=== PATIENT | female | born 1965 | race Caucasian/White ===

== ENCOUNTER 2022-07-06 16:47 | Emergency (ER) | payer BC ==
--- OUTSIDE RECORDS SUMMARY | 2022-07-06 16:52 | XMS REPORT | Continuity of Care Document ---
:1965 Author Organization [facility] t Address [address] [place] [address] Care Team Providers Name Role Phone SONIA READ Primary Care Physician Unavailable Cullen Olea Attending Clinician Unavailable Sofía Carlos Attending Clinician Unavailable ANN SEGAL Attending Clinician Unavailable Sindhu Sue Attending Clinician Unavailable MANAV CHAVEZ Attending Clinician Unavailable SERENA PANDA Attending Clinician Unavailable SONIA READ Attending Clinician Unavailable Juanita Joseph Attending Clinician Unavailable GINO DIETZ Attending Clinician Unavailable Manav Chavez MD Attending Clinician Daisy, Delvis Urban Attending Clinician Unavailable Gema Schmitt MD Attending Clinician [phone] COLETTE HOWELL Attending Clinician Unavailable Judah Rooney DO Attending Clinician ANN SEGAL Admitting Clinician Unavailable Physician, No Primary or Family Admitting Clinician UnavailJuanita Drummond Admitting Clinician Unavailable GINO DIETZ Admitting Clinician Unavailable Sindhu Sue Admitting Clinician Unavailable MANAV CHAVEZ Admitting Clinician Unavailable Payers Payer Name Policy Type Policy Number Effective Date Expiration Date Nilam palacios BCBS OS [id number] 2020 00:00:00 POS/PPO/[place] - [id number] 2021 00:00:00 OUT OF STATE Problems Condition Condition Condition Status Onset Resolution Last Treating Co mments Source Name Details Category Date Date Treatment Clinician Date Microhemat Microhemat Disease Active 2020-12 U nivers uria uria 1-18 ity of 00:00: [place] 00 Medical Branch History of History of Disease Active 2020-12 U nivers right right 1-11 ity of breast breast 00:00: [place] cancer cancer Medical Branch Neuropathy Neuropathy Disease Active 2020-12 U nivers 0- ity of 00:00: [place] [facility] Atypical Atypical Disease Active [facility] hyper[facility]asi hyperplasi 2-03 Co llege a of right a of right 00:00: of breast breast 00 Medicin e Abnormal Abnormal Disease Active 2019-12 Unive rs thyroid thyroid 0-25 ity of function function 00:00: [place] test test 00 Medical Branch Need for Need for Disease Active 2019- Unive rs hepatitis hepatitis 1-02 ity of A and B A and B 00:00: [place] vaccinatio vaccinatio 00 Me dical n n Branch Benign Benign Disease Active 2020- Univers cyst of cyst of 1-02 ity of right right 00:00: [place] kidney kidney 00 Medical Branch Liver cyst Liver cyst Disease Active 2020- U nivers 1-02 ity of 00:00: [place] 00 Medical Branch Fatty Fatty Disease Active 2020- Univers liver liver 1-02 ity of 00:00: [place] 00 Medical Branch Prediabete Prediabete Disease Active 2018-12 U nivers s s 2- ity of 00:00: [place] 00 Medical Branch Hyperchole Hyperchole Disease Active 2018- U nivers sterolemia sterolemia 2-26 it y of 00:00: [place] 00 Medical Branch CKD CKD Disease Active 2018-12 Univers (chronic (chronic 2-26 ity of kidney kidney 00:00: [place] disease), disease), 00 Medi ramy stage III stage III Bran ch Chronic Chronic Disease Active 2018-12 Univers fatigue fatigue 2-26 ity of 00:00: [place] 00 Medical [facility] Abnormal Abnormal Disease Active 2018-12 Unive rs liver liver 2-19 ity of function function 00:00: [place] tests tests 00 Medical Branch Allergic Allergic Disease Active 2018-12 Unive rs rhinitis rhinitis 2-09 ity of 00:00: [place] 00 Medical Branch Essential Essential Disease Active 2018-12 Uni vers hypertensi hypertensi 2-09 it y of on on 00:00: [place] 00 Medical Branch Arthritis Arthritis Disease Active 2018-12 Uni vers 2-09 ity of 00:00: [place] 00 Medical Branch Hearing Hearing Disease Active 2018-12 Univers loss loss 2- ity of 00:00: [place] 00 Medical Branch History of History of Disease Active 2018-12 U nivers headache headache 2- ity of 00:00: [place] 00 Medical Branch GERD GERD Disease Active 2018-12 Univers (gastroeso (gastroeso 2- it y of phageal phageal 00:00: [place] reflux reflux 00 Medical disease) disease) Branch Hyperlipid Hyperlipi Problem Active 2021-08-05 Memoria emia demia 01:30:02 l (disorder) (disorder) He rmann Active Problem 08/05/2021 [facility] Hypertensi Problem Active 2021-08-05 M emoria ve Hypertensi 01:30:02 l disorder, ve [place] systemic disorder, arterial systemic (disorder) arterial (disorder) Active Problem 08/05/2021 [facility] Paresthesi Paresthes Problem Active 2021-08-05 Memoria a of hand ia of hand 01:30:02 l (finding) (finding) Herm pelon Active Problem 08/05/2021 [facility] Malignant Malignant Problem Resolve 2021-08-05 Memoria tumor of tumor of d 01:30:02 l breast breast Francisco (disorder) (disorder) Resolved Problem 08/05/2021 [facility] Backache Backache Problem Active 2021-08-05 Memoria (finding) (finding) 01:30:02 l Active [place] Problem 08/05/2021 [facility] Family Family Problem Active 2021-08-05 Barrett de history of history of 01:30:02 l neuropathy neuropathy He rmann (situation (situation ) ) Active Problem 08/05/2021 [facility] Hip pain Hip pain Problem Active 2021-08-05 Memoria (finding) (finding) 01:30:02 l Active [place] Problem 08/05/2021 [facility] Allergies, Adverse Reactions, Alerts Allergy Allergy Status Severity Reaction(s) Onset Inactive Treating Comm ents Source Name Type Date Date Clinician No Known DA Active U [facility] 3-10 [place] [facility] No Known DA Active U [facility] Drug 2-15 Allergie 00:00: s 00 CEFOTAXI Allergy Active [facility] Medical [address] [place] [address] Cefotaxi Propensi Active Hives 2018-12 [facility] me ty to 01-10 College adverse 00:00: of reaction 00 Medicin s to e drug Cefotaxi Propensi Active Hives 2018-12 Univer s me ty to 01-10 ity of adverse 00:00: [place] reaction 00 Medical s Branch CEFOTAXI DRUG Active High Hives 2018-12 Univers ME INGREDI 01-10 ity of 00:00: [place] 00 [facility] Omar Nelson Active Gwen Singh Social History Social Habit Start Date Stop Date Quantity Comments Source Exposure to Not sure [place] of SARS-CoV-2 (event) [facility] Alcohol intake 2021-10-19 2021-10-19 Ex-drinker University of 00:00:00 00:00:00 (finding) [facility] Social History 2021-08-02 2021-08-02 [place] 18:59:21 18:59:21 Cigarettes smoked 2021-01-04 2021-01-04 [facility] of current (pack per 00:00:00 00:00:00 Medicin e day) - Reported Cigarette 2021-01-04 2021-01-04 [facility] of pack-years 00:00:00 00:00:00 Medicine Tobacco use and 2019-11-09 2019-11-09 Never used Universit y of exposure 00:00:00 00:00:00 [facility] History of tobacco 2002-12-02 2007-12-02 Cigarette Smoker [facility] of use 00:00:00 00:00:00 Medicine Sex [birth year] Universit y of 00:00:00 00:00:00 [facility] Smoking Status Start Date Stop Date Source Former smoker 2021-01-04 00:00:00 2021-01-04 00:00:00 [facility] Never smoker [facility] Medications Ordered Filled Start Stop Current Ordering Indication Dosage Frequency Signature Comments Components Source Medication Medication Date Date Medication? Clinician (SIG) Name Name gabapentin 2020-12 Yes 300mg Take 300 Un melodie 300 mg 1-11 mg by ity of capsule 13:27: mouth [address] [place] [address] ([facility]) [facility] times [place] daily. She reports only taking the medication twice a day tamoxifen 2020-12 Yes 20mg Take 20 mg Un melodie 20 mg 1-11 by mouth ity of tablet 13:27: daily. [address] gabapentin 2020-12 Yes 300mg Take 300 Un melodie 300 mg 1-11 mg by ity of capsule 13:27: mouth [address] [place] [address] ([facility] times [place] daily. She reports only taking the medication twice a day tamoxifen 2020-12 Yes 20mg Take 20 mg Un melodie 20 mg 1-11 by mouth ity of tablet 13:27: daily. [address] gabapentin 2020-12 Yes 300mg Take 300 Un melodie 300 mg 1-11 mg by ity of capsule 13:27: mouth [address] [place] [address] ([facility] times [place] daily. She reports only taking the medication twice a day tamoxifen 2020-12 Yes 20mg Take 20 mg Un melodie 20 mg 1-11 by mouth ity of tablet 13:27: daily. [address] gabapentin 2020-12 Yes 300mg Take 300 Un melodie 300 mg 1-11 mg by ity of capsule 13:27: mouth [address] [place] [address] ([facility]) [facility] times [place] daily. She reports only taking the medication twice a day tamoxifen 2020-12 Yes 20mg Take 20 mg Un melodie 20 mg 1-11 by mouth ity of tablet 13:27: daily. [address] gabapentin 2020-12 Yes 300mg Take 300 Un melodie 300 mg 1-11 mg by ity of capsule 13:27: mouth [address] [place] [address] ([facility]) [facility] times [place] daily. She reports only taking the medication twice a day tamoxifen 2020-12 Yes 20mg Take 20 mg Un melodie 20 mg 1-11 by mouth ity of tablet 13:27: daily. 04 Medical Branch Amlodipine- 2020-12 Yes [id number] 1{tbl} Take 1 Univers Olmesartan 1-11 tablet by ity of 5-20 mg per 00:00: mouth [place] tablet 00 daily. Medical Branch rosuvastati 2020-12 Yes [id number] 10mg Take 1 Univers n 10 mg 1-11 tablet by ity of tablet 00:00: mouth at [place] 00 bedtime. Medical Branch Amlodipine- 2020-12 Yes [id number] 1{tbl} Take 1 Univers Olmesartan 1-11 tablet by ity of 5-20 mg per 00:00: mouth [place] tablet 00 daily. Medical Branch rosuvastati 2020-12 Yes [id number] 10mg Take 1 Univers n 10 mg 1-11 tablet by ity of tablet 00:00: mouth at [place] 00 bedtime. Medical Branch Amlodipine- 2020-12 Yes [id number] 1{tbl} Take 1 Univers Olmesartan 1-11 tablet by ity of 5-20 mg per 00:00: mouth [place] tablet 00 daily. Medical Branch rosuvastati 2020-12 Yes [id number] 10mg Take 1 Univers n 10 mg 1-11 tablet by ity of tablet 00:00: mouth at [place] 00 bedtime. Medical Branch Amlodipine- 2020-12 Yes [id number] 1{tbl} Take 1 Univers Olmesartan 1-11 tablet by ity of 5-20 mg per 00:00: mouth [place] tablet 00 daily. Medical Branch rosuvastati 2020-12 Yes [id number] 10mg Take 1 Univers n 10 mg 1-11 tablet by ity of tablet 00:00: mouth at [place] 00 bedtime. Medical Branch Amlodipine- 2020-12 Yes [id number] 1{tbl} Take 1 Univers Olmesartan 1-11 tablet by ity of 5-20 mg per 00:00: mouth [place] tablet 00 daily. Medical Branch rosuvastati 2020-12 Yes [id number] 10mg Take 1 Univers n 10 mg 1-11 tablet by ity of tablet 00:00: mouth at [place] 00 bedtime. Medical Branch Amlodipine- 2020-12 [id number] 1{tbl} Take 1 Univers Olmesartan 1-10 11-11 tablet by ity of 5-20 mg per 00:00: 00:00 [place] tablet [place] :00 daily. [facility] omeprazole 0 Yes Take by [facility] (PRILOSEC) 9- mouth. College 40 MG 08:53: of capsule 17 Medicin e omeprazole 0 Yes Take by [facility] (PRILOSEC) - mouth. College 40 MG 08:53: of capsule 17 Medicin e tamoxifen Yes 10mg Take 1 [facility] (NOLVADEX) - Tablet by Janet ege 10 MG 00:00: mouth of tablet 00 daily. Medicin e tamoxifen 0 Yes 10mg Take 1 [facility] (NOLVADEX) - Tablet by Janet ege 10 MG 00:00: mouth of tablet 00 daily. Medicin e gabapentin Yes 300 mg = 1 M emoria 300 MG Oral 08-02 cap, PO, l Capsule 19:58: TID, # 90 Radha nn 00 cap, 2 Refill(s), Pharmacy: [id number], 154.94, cm, 08/02/21 14:10:00 CDT, Height, 76.364, kg, 08/02/21 14:10:00 CDT, Weight gabapentin Yes 300 mg = 1 M emoria 300 MG Oral 08-02 cap, PO, l Capsule 19:58: TID, # 90 Radha nn 00 cap, 2 Refill(s), [facility]: [id number], 154.94, cm, 08/02/21 14:10:00 CDT, Height, 76.364, kg, 08/02/21 14:10:00 CDT, Weight Amlodipine Yes 1 tab, PO, M emoria 5 MG / 08-02 Daily, # l Olmesartan 19:16: 30 tab, 0 He rmann medoxomil 00 Refill(s) 20 MG Oral Tablet rosuvastati Yes 10 mg = 1 M emoria n 10 mg 08-02 tab, PO, l oral tablet 19:16: Bedtime, # [place] 00 30 tab, 0 Refill(s) gabapentin No 200 mg = 2 M emoria 100 MG Oral 08-02 cap, PO, l Capsule 19:16: Q6H, # 240 Herm pelon 00 cap, 0 Refill(s) Amlodipine Yes 1 tab, PO, M emoria 5 MG / 08-02 Daily, # l Olmesartan 19:16: 30 tab, 0 He rmann medoxomil 00 Refill(s) 20 MG Oral Tablet rosuvastati Yes 10 mg = 1 M emoria n 10 mg 08-02 tab, PO, l oral tablet 19:16: Bedtime, # [place] 00 30 tab, 0 Refill(s) gabapentin No 200 mg = 2 M emoria 100 MG Oral 08-02 cap, PO, l Capsule 19:16: Q6H, # 240 Herm pelon 00 cap, 0 Refill(s) taMOXifen Yes 20 mg = 1 Mem oria 20 mg oral 08-02 tab, PO, l tablet 19:15: Daily, # [place] 00 30 tab, 0 Refill(s) omeprazole Yes 40 mg = 1 Me moria 40 mg oral 08-02 cap, PO, l delayed 19:15: Daily, # Benigno n release 00 30 cap, 0 capsule Refill(s) taMOXifen Yes 20 mg = 1 Mem oria 20 mg oral 08-02 tab, PO, l tablet 19:15: Daily, # [place] 00 30 tab, 0 Refill(s) omeprazole Yes 40 mg = 1 Me moria 40 mg oral 08-02 cap, PO, l delayed 19:15: Daily, # Benigno n release 00 30 cap, 0 capsule Refill(s) gabapentin Yes [id number] 100mg Take 1 [facility] (NEURONTIN) 8-04 capsule by Co llege 100 MG 00:00: mouth 3 of capsule 00 times Medicin daily. e gabapentin Yes [id number] 100mg Take 1 [facility] (NEURONTIN) 8-04 capsule by Co llege 100 MG 00:00: mouth 3 of capsule 00 times Medicin daily. e omeprazole Yes Take by [facility] (PRILOSEC) 7-20 mouth. College 40 MG 15:12: of capsule 46 Medicin e tamoxifen 2021-0 Yes 20mg Take 1 [facility] (NOLVADEX) 4-20 Tablet by Janet ege 20 MG 00:00: mouth of tablet 00 daily. Medicin e tamoxifen 0 Yes 20mg Take 1 [facility] (NOLVADEX) 4-20 Tablet by Janet ege 20 MG 00:00: mouth of tablet 00 daily. Medicin e tamoxifen 0 Yes 20mg Take 1 [facility] (NOLVADEX) 4-20 Tablet by Janet ege 20 MG 00:00: mouth of tablet 00 daily. Medicin e tramadol 0 2020- No [id number] 1{tbl} Take 1 [facility] (ULTRAM) 50 4-13 07-20 Tablet by Co llege MG tablet 00:00: 00:00 mouth of 00 :00 every 8 Medicin hours as e needed for Pain. rosuvastati Yes TAKE 1 [facility] (CRESTOR) 1-21 TABLET BY Col lege 10 MG 00:00: MOUTH of tablet 00 EVERYDAY Medicin AT BEDTIME e rosuvastati Yes TAKE 1 [facility] (CRESTOR) 1-21 TABLET BY Col lege 10 MG 00:00: MOUTH of tablet 00 EVERYDAY Medicin AT BEDTIME e rosuvastati Yes TAKE 1 [facility] (CRESTOR) 1-21 TABLET BY Col lege 10 MG 00:00: MOUTH of tablet 00 EVERYDAY Medicin AT BEDTIME e amLODIPine- Yes TAKE 1 [facility] Olmesartan 1-18 TABLET BY Janet ege 5-20 MG 00:00: MOUTH of TABS 00 EVERY DAY Medicin e amLODIPine- Yes TAKE 1 [facility] Olmesartan 1-18 TABLET BY Janet ege 5-20 MG 00:00: MOUTH of TABS 00 EVERY DAY Medicin e amLODIPine- Yes TAKE 1 [facility] Olmesartan 1-18 TABLET BY Janet ege 5-20 MG 00:00: MOUTH of TABS 00 EVERY DAY Medicin e OMEPRAZOLE 2019-12 Yes Take by [facility] ers ORAL 2-03 mouth. ity of 15:56: [address] OMEPRAZOLE 2019-12 Yes Take by [facility] ers ORAL 2-03 mouth. ity of 15:56: [address] OMEPRAZOLE 2019-12 Yes Take by [facility] ers ORAL 2-03 mouth. ity of 15:56: [place] [facility] OMEPRAZOLE 2019-12 Yes Take by [facility] ers ORAL 2-03 mouth. ity of 15:56: [place] [facility] OMEPRAZOLE 2019-12 Yes Take by [facility] ers ORAL 2-03 mouth. ity of 15:56: [address] rosuvastati 2019-12- No [id number] 10mg Take 1 Univers n 10 mg 0-16 11-11 tablet by ity of tablet 00:00: 00:00 mouth at [place] 00 :00 bedtime. [facility] Immunizations Ordered Filled Immunization Date Status Comments [facility] e Immunization Name Name SARS-COV-2 COVID-19 2021-10-12 Completed Unive rsity of PFIZER VACCINE 00:00:00 [facility] SARS-COV-2 COVID-19 2021-10-12 Completed Unive rsity of PFIZER VACCINE 00:00:00 [facility] SARS-COV-2 COVID-19 2021-10-12 Completed Unive rsity of PFIZER VACCINE 00:00:00 [facility] SARS-COV-2 COVID-19 2021-10-12 Completed Unive rsity of PFIZER VACCINE 00:00:00 [facility] SARS-COV-2 COVID-19 2021-10-12 Completed Unive rsity of PFIZER VACCINE 00:00:00 [facility] Influenza Virus 2021-08-07 Completed Universit y of Vaccine Quad IM 3+ 00:00:00 [facility] Influenza Virus 2021-08-07 Completed Universit y of Vaccine Quad IM 3+ 00:00:00 [facility] Influenza Virus 2021-08-07 Completed Universit y of Vaccine Quad IM 3+ 00:00:00 [facility] Influenza Virus 2021-08-07 Completed Universit y of Vaccine Quad IM 3+ 00:00:00 [facility] Influenza Virus 2021-08-07 Completed Universit y of Vaccine Quad IM 3+ 00:00:00 [facility] SARS-COV-2 COVID-19 2021-03-13 Completed Unive rsity of PFIZER VACCINE 00:00:00 [facility] SARS-COV-2 COVID-19 2021-03-13 Completed Unive rsity of PFIZER VACCINE 00:00:00 [facility] SARS-COV-2 COVID-19 2021-03-13 Completed Unive rsity of PFIZER VACCINE 00:00:00 [facility] SARS-COV-2 COVID-19 2021-03-13 Completed Unive rsity of PFIZER VACCINE 00:00:00 [facility] SARS-COV-2 COVID-19 2021-03-13 Completed Unive rsity of PFIZER VACCINE 00:00:00 [facility] SARS-COV-2 COVID-19 2021-02-20 Completed Unive rsity of PFIZER VACCINE 00:00:00 [facility] SARS-COV-2 COVID-19 2021-02-20 Completed Unive rsity of PFIZER VACCINE 00:00:00 [facility] SARS-COV-2 COVID-19 2021-02-20 Completed Unive rsity of PFIZER VACCINE 00:00:00 [facility] SARS-COV-2 COVID-19 2021-02-20 Completed Unive rsity of PFIZER VACCINE 00:00:00 [facility] SARS-COV-2 COVID-19 2021-02-20 Completed Unive rsity of PFIZER VACCINE 00:00:00 [facility] Influenza Virus 2020-07-13 Completed Universit y of Vaccine Quad .5 mL 00:00:00 [facility] IM 6+ MO Branch Influenza Virus 2020-07-13 Completed Universit y of Vaccine Quad .5 mL 00:00:00 [facility] IM 6+ MO Branch Influenza Virus 2020-07-13 Completed Universit y of Vaccine Quad .5 mL 00:00:00 [facility] IM 6+ MO Branch Influenza Virus 2020-07-13 Completed Universit y of Vaccine Quad .5 mL 00:00:00 [facility] IM 6+ MO Branch Influenza Virus 2020-07-13 Completed Universit y of Vaccine Quad .5 mL 00:00:00 [facility] [place] 6+ MO Branch Zoster Vaccine 2020-01-31 Completed University of Recombinant 00:00:00 [facility] Zoster Vaccine 2020-01-31 Completed University of Recombinant 00:00:00 [facility] Zoster Vaccine 2020-01-31 Completed University of Recombinant 00:00:00 [facility] Zoster Vaccine 2020-01-31 Completed University of Recombinant 00:00:00 [facility] Zoster Vaccine 2020-01-31 Completed University of Recombinant 00:00:00 [facility] Zoster Vaccine 2019-12-02 Completed University of Recombinant 00:00:00 [facility] Zoster Vaccine 2019-12-02 Completed University of Recombinant 00:00:00 [facility] Zoster Vaccine 2019-12-02 Completed University of Recombinant 00:00:00 [facility] Zoster Vaccine 2019-12-02 Completed University of Recombinant 00:00:00 [facility] Zoster Vaccine 2019-12-02 Completed University of Recombinant 00:00:00 [facility] TDAP 2018-11-29 Completed University of 00:00:00 [facility] TDAP 2018-11-29 Completed University of 00:00:00 [facility] TDAP 2018-11-29 Completed University of 00:00:00 [facility] TDAP 2018-11-29 Completed University of 00:00:00 [facility] TDAP 2018-11-29 Completed University of 00:00:00 [facility] Vital Signs Vital Name Observation Time Observation Value Comments Source HEIGHT 2021-03-08 06:43:00 157.5 cm WEIGHT 2021-03-08 06:43:00 76.3 kg HEIGHT 2021-03-06 12:47:00 157.5 cm WEIGHT 2021-03-06 12:47:00 75.297 kg HEIGHT 2021-02-07 06:18:00 157.5 cm WEIGHT 2021-02-07 06:18:00 75.524 kg HEIGHT 2021-02-01 09:36:00 157.5 cm WEIGHT 2021-02-01 09:36:00 77.111 kg Systolic blood 2021-10-12 19:06:00 98 mm[Hg] Univer sity of pressure [facility] Diastolic blood 2021-10-12 19:06:00 67 mm[Hg] Unive rsity of pressure [facility] Heart rate 2021-10-12 19:06:00 89 /min Universi ty [facility] [place] [facility] Body height 2021-10-12 19:06:00 157.5 cm Universi ty [facility] [place] [facility] Body weight 2021-10-12 19:06:00 70.761 kg Universi ty [facility] [place] [facility] BMI 2021-10-12 19:06:00 28.53 kg/m2 Universi ty [facility] [place] [facility] Oxygen saturation in 2021-10-12 19:06:00 100 /min University Arterial blood by [facility] Pulse oximetry Branch Systolic blood 2021-08-22 14:01:00 114 mm[Hg] [facility] Medicine Diastolic blood 2021-08-22 14:01:00 74 mm[Hg] [facility] Medicine Heart rate 2021-08-22 14:01:00 89 /min [facility] Body height 2021-08-22 14:01:00 [facility] Body weight 2021-08-22 14:01:00 72.576 kg [facility] BMI 2021-08-22 14:01:00 29.26 kg/m2 [facility] Body temperature 2021-08-22 13:52:00 36.11 [facility] Systolic blood 2021-06-20 19:56:00 104 mm[Hg] [facility] Diastolic blood 2021-06-20 19:56:00 70 mm[Hg] [facility] Heart rate 2021-06-20 19:56:00 106 /min [facility] Body temperature 2021-06-20 19:56:00 36.11 [facility] Body height 2021-06-20 19:56:00 157.5 cm [facility] Body weight 2021-06-20 19:56:00 74.39 kg [facility] BMI 2021-06-20 19:56:00 30.00 kg[facility]m2 [facility] HEIGHT 2021-03-08 06:43:00 157.5 cm WEIGHT 2021-03-08 06:43:00 76.3 kg HEIGHT 2021-03-06 12:47:00 157.5 cm WEIGHT 2021-03-06 12:47:00 75.297 kg HEIGHT 2021-02-07 06:18:00 157.5 cm WEIGHT 2021-02-07 06:18:00 75.524 kg HEIGHT 2021-02-01 09:36:00 157.5 cm WEIGHT 2021-02-01 09:36:00 77.111 kg HEIGHT 2021-02-06 08:10:00 157.5 cm WEIGHT 2021-02-06 08:10:00 75.751 kg Systolic (mm Hg) 2021-08-02 18:51:00 Barrett Singh Diastolic (mm Hg) 2021-08-02 18:51:00 Radha Singh Heart Rate 2021-08-02 18:51:00 [facility] Respitory Rate 2021-08-02 18:51:00 Gwen Stafford Height 2021-08-02 18:51:00 154.94 cm [facility] Weight 2021-08-02 18:51:00 [facility] BMI Calculated 2021-08-02 18:51:00 [facility] gerald Singh Procedures Procedure Date / Time Performing Clinician Source Performed US RETROPERITONEAL 2021-11-09 19:35:40 Manav Chavez [facility] COMPLETE Medical Branch SARS-COV-2 COVID-19 2021-10-12 19:35:45 Manav Chavez [facility] VACCINE,0.3ML,IM (PFIZER) Medica l Branch HEPATIC FUNCTION PANEL 2021-08-22 13:50:00 Meaghan Melo [facility] Lumpectomy [facility] Carpal tunnel release [facility] Plan of Care Planned Activity Planned Date Details Comments Source Future Scheduled 2021-08-25 Screening for malignant [facility] College Test 10:13:36 neoplasm of colon of Medicin e (procedure) [code = [id number]] Future Scheduled 2021-08-25 Screening for malignant [facility] College Test 10:13:36 neoplasm of breast of Medici ne (procedure) [code = [id number]] Future Scheduled 2021-08-25 BMI FOLLOW UP PLAN [facility] Test 10:13:36 [code = BMI FOLLOW UP of Med icine PLAN] Future Scheduled 2021-08-25 Hepatitis C screening [facility] College Test 10:13:36 (procedure) [code = of Medic ine [id number]] Future Scheduled 2021-08-25 Human immunodeficiency [facility] Test 10:13:36 virus screening of Medicine (procedure) [code = 004890838] Future Scheduled 2021-08-25 Screening for malignant [facility] Test 10:13:36 neoplasm of cervix of Medici ne (procedure) [code = 961073952] Future Scheduled 2021-08-25 ZOSTER VACCINE (1 of 2) [facility] [employer] Test 10:13:36 [code = ZOSTER VACCINE of Me dicine (1 of 2)] Future Scheduled 2021-08-25 FLU VACCINE > 6 MONTHS [facility] Test 10:13:36 [code = FLU VACCINE > 6 of M edicine MONTHS] Future Scheduled 2021-08-25 TETANUS SHOT (ADULT) [facility] [employer] Test 10:13:36 [code = TETANUS SHOT of Medi cine (ADULT)] Future Scheduled 2021-08-25 Screening for malignant [facility] Test 10:13:36 neoplasm of colon of Medicin e (procedure) [code = 874080657] Future Scheduled 2021-08-25 Screening for malignant [facility] Test 10:13:36 neoplasm of breast of Medici ne (procedure) [code = 838442949] Future Scheduled 2021-08-25 BMI FOLLOW UP PLAN [employer] Test 10:13:36 [code = BMI FOLLOW UP of Med icine PLAN] Future Scheduled 2021-08-25 Hepatitis C screening [facility] Test 10:13:36 (procedure) [code = of Medic ine 393947192] Future Scheduled 2021-08-25 Human immunodeficiency B [facility] Test 10:13:36 virus screening of Medicine (procedure) [code = 086636919] Future Scheduled 2021-08-25 Screening for malignant [facility] Test 10:13:36 neoplasm of cervix of Medici ne (procedure) [code = 124149480] Future Scheduled 2021-08-25 ZOSTER VACCINE (1 of 2) [facility] Test 10:13:36 [code = ZOSTER VACCINE of Me dicine (1 of 2)] Future Scheduled 2021-08-25 FLU VACCINE > 6 MONTHS [facility] Test 10:13:36 [code = FLU VACCINE > 6 of M edicine MONTHS] Future Scheduled 2021-08-25 TETANUS SHOT (ADULT) [facility] [employer] Test 10:13:36 [code = TETANUS SHOT of Medi cine (ADULT)] Future Scheduled 2021-08-22 DEXA BONE DENSITY SPINE 1 Occurrences [facility] [employer] Test 09:45:12 AND HIP [code = 01756] starting of Me dicine 08/22/2021 until 08/22/2022 Future Scheduled 2021-08-22 DEXA BONE DENSITY SPINE 1 Occurrences [facility] [employer] Test 09:45:12 AND HIP [code = 92545] starting of Me dicine 08/22/2021 until 08/22/2022 Diagnostic Test 2021-08-22 MAMMO DIAGNOSTIC BILAT Expected: [employer] Pending 00:00:00 (US/BIOP IF NEEDED) 08/22/2021, of Medic ine [code = 01848-9] Expires: 02/19/2023 Diagnostic Test 2021-08-22 MAMMO DIAGNOSTIC BILAT Expected: [employer] Pending 00:00:00 (US/BIOP IF NEEDED) 08/22/2021, of Medic ine [code = 28433-7] Expires: 02/19/2023 Future Scheduled 2021-06-23 Screening for malignant [facility] Test 18:25:25 neoplasm of colon of Medicin e (procedure) [code = 074486801] Future Scheduled 2021-06-23 Screening for malignant [facility] Test 18:25:25 neoplasm of breast of Medici ne (procedure) [code = 345641046] Future Scheduled 2021-06-23 BMI FOLLOW UP PLAN [facility] Test 18:25:25 [code = BMI FOLLOW UP of Med icine PLAN] Future Scheduled 2021-06-23 Hepatitis C screening [facility] Test 18:25:25 (procedure) [code = of Medic ine 758094476] Future Scheduled 2021-06-23 Human immunodeficiency [facility] Test 18:25:25 virus screening of Medicine (procedure) [code = 762396857] Future Scheduled 2021-06-23 Screening for malignant [facility] Test 18:25:25 neoplasm of cervix of Medici ne (procedure) [code = 708000839] Future Scheduled 2021-06-23 ZOSTER VACCINE (1 of 2) [facility] [employer] Test 18:25:25 [code = ZOSTER VACCINE of Me dicine (1 of 2)] Future Scheduled 2021-06-23 FLU VACCINE > 6 MONTHS [facility] [employer] Test 18:25:25 [code = FLU VACCINE > 6 of M edicine MONTHS] Future Scheduled 2021-06-23 TETANUS SHOT (ADULT) [facility] Test 18:25:25 [code = TETANUS SHOT of Medi cine (ADULT)] Encounters Start End Encounter Admission Attending Care Care Encounter Source Date/Time Date/Time Type Type Clinicians Facility Department ID 2022-07-05 Outpatient [facility] [id number] Common 15:05:01 [facility] 2022-06-27 Outpatient STLMLC STLMLC [id number] Common 11:28:03 [facility] 2022-06-14 Outpatient Olea, STLMLC STLMLC [id number] Common 15:03:03 Cullen [id number] [facility] 2022-03-20 Outpatient STLMLC STLMLC [id number] Common 07:23:00 [facility] 2022-01-16 Inpatient Sofía Carlos [facility] [id number] [facility] 15:00:00 13 2021-12-27 Outpatient STLMLC STLMLC [id number] Common 14:30:52 [facility] 2021-12-27 Outpatient STLMLC STLMLC [id number] Common 14:28:12 [id number] [facility] 2021-09-09 Outpatient BONEFAS, [facility] [id number] [facility] 09:33:36 ANN 2021-09-09 Outpatient BONEFAS, [facility] Surgery [id number] [facility] 02:51:09 ANN 2020-12-20 Inpatient LIZA Sue, [facility] [id number] [facility] 10:12:00 [facility]hu [id number] [facility] 2022-10-08 2022-10-08 Outpatient Laura CHAVEZ [facility] [id number] Univers 08:45:00 08:45:00 MANAV [id number] ity o f [facility] 2022-07-16 2022-07-16 Outpatient Laura PANDA [facility] [id number] Univers 11:00:00 11:00:00 SERENA [id number] [facility] 2022-07-06 2022-07-06 Outpatient Laura READ [facility] [id number] Univers 15:30:00 15:30:00 SONIA [id number] [facility] 2022-07-06 2022-07-06 Outpatient Laura READ [facility] [id number] Univers 15:30:00 15:30:00 SONIA ity of [facility] 2022-02-08 2022-02-08 Outpatient LI[facility] Joseph[facility] [id number] [facility] 14:01:00 14:01:00 Juanita [id number] [facility] 2022-02-08 2022-02-08 Outpatient LIZA Joseph, HCAPM HCAPM [id number] [facility] 14:01:00 14:01:00 Juanita 65 [facility] 2021-12-13 2021-12-13 Outpatient LI[facility] DIETZ, [facility] IN[facility] [id number] [facility] 12:00:00 12:00:00 GINO [id number] [facility] 2021-11-09 2021-11-09 [facility] [id number] Univers 13:03:46 23:59:00 Encounter Wondiful A [place] 350.1.13.10 ity of [facility] 4.2.7.2.686 [facility] [id number] [address] 2021-11-09 2021-11-09 [facility] [id number] Univers 13:30:00 13:30:00 WONDIFUL [id number] ity o f [facility] 2021-11-09 2021-11-09 [facility] [id number] Univers 13:00:00 13:02:00 Encounter Wondiful A [place] 350.1.13.10 ity [facility] 4.2.7.2.686 [facility] [id number] [address] 2021-11-09 2021-11-09 [facility]patient R [facility] [id number] Univers 00:00:00 13:02:00 WONDIFUL ity o f [facility] 2021-10-19 2021-10-19 Case [facility] [id number] Univers 00:00:00 00:00:00 Management Wondiful A HEALTH 350.1.13.10 ity of [place] 4.2.7.2.686 Leonidsa as SALUD?BLEA [id number] Al poonam [facility] 044 [facility] OFFICE [facility] 2021-10-17 2021-10-17 [employer] [facility], Ang - Db [facility] 1.2.840.1 [id number] Univers 07:30:11 07:45:11 Visit Manav Chavez HEALTH 350.1.13.1 0 ity of [place] 4.2.7.2.686 Leonidas as SALUD?BLEA [id number] Al poonam [facility] 353 [facility] OFFICE [facility] 2021-10-17 2021-10-17 Outpatient R SCOTT [facility] [id number] Univers 07:30:00 07:30:00 WONDIFUL ity o f [facility] 2021-10-12 2021-10-12 Office Scott [facility] [id number] [facility] 13:04:47 13:50:56 Visit Wonharleyful A HEALTH 350.1.13.10 ity of [place] 4.2.7.2.686 Leonidas as SALUD?BLEA [id number] Al poonam [address] OFFICE [facility] 2021-09-07 2021-09-07 Outpatient MHIE MHIE [id number] Memoria 08:15:00 08:15:00 01 l Francisco 2021-08-22 2021-08-22 Office Nemati [facility] [id number] [facility] 08:28:41 12:15:06 Visit Lilli Melo 350.1.13.21 C prashant Ribeiro 0.2.7.2.686 [id number] Medi casey 500 e 2021-08-22 2021-08-22 Outpatient RIDEAU, SLEH [facility] [id number] [facility] 00:00:00 00:00:00 COLETTE 2021-08-02 2021-08-03 Outpatient nullFlavo MNA [id number] Memoria 18:45:00 04:59:59 r Neurology 00 l Tati Singh 2021-06-20 2021-06-20 Office Nemati [facility] 1.2.840.114 [id number] [facility] 14:35:44 15:26:08 Visit Lilli Melo 350.1.13.21 C prashant Ribeiro 0.2.7.2.686 [id number] Medi casey 500 e 2021-03-06 2021-03-06 Outpatient EL SLEH SLEH [id number] [facility] 00:00:00 00:00:00 2021-02-14 2021-02-14 [facility] 1.2.840.114 [id number] 00:00:00 00:00:00 Outreach [facility] 350..13.[address] [facility] 4.2.7.2.686 PAVDOT [id number] 2021-02-06 2021-02-06 Outpatient EL MARILEE, SLE [facility] [id number] [facility] 00:00:00 23:59:00 ANN 2021-02-06 2021-02-06 Outpatient EL [facility] [id number] [facility] 00:00:00 00:00:00 2021-02-06 2021-02-06 Outpatient EL [facility] SLEH [id number] [facility] 00:00:00 00:00:00 2021-02-06 2021-02-06 Outpatient EL SLEH SLEH [id number] [facility] 00:00:00 00:00:00 2021-02-01 2021-02-01 Outpatient EL [facility] [id number] [facility] 00:00:00 00:00:00 2020-12-15 2020-12-15 Outpatient LIZA Sue, [facility] [id number] [facility] 12:00:00 12:00:00 Sindhu Bateman [facility] 2020-12-09 2020-12-09 Outpatient LIZA Sue, [facility] INGE [id number] [facility] 12:00:00 12:00:00 Sindhu [id number] [facility] 2020-11-03 2020-11-03 Office Scott [facility] [id number] 15:11:08 16:02:[address] [facility] 350.1.13.10 Antonia 4.2.7.2.686 Profaria [id number] nal [address] 2019-12-08 2019-12-08 Outpatient LIZA Sue, [facility] INGE [id number] [facility] 12:00:00 12:00:00 Sindhu [id number] Keny barnes [facility] 2019-12-03 2019-12-03 Outpatient Laura CHAVEZ [facility] [id number] Univers 07:51:04 23:59:00 MANAV holbrook [facility] Results Test Description Test Time Test Comments Results Result Comments Source SURG 2022-02-13 12:04:00 Test Item Value Reference Range Interpretation Comme nts SURG RUN (test DATE: 02/13/22 ENEDINA Nagel [facility] - LAB PAGE 1 RUN TIME: 1204 Specimen Inquiry RUN USER: code = INTERFACE SURG) POWER NT: ERIC SANCHEZ ACC T #: [id number] LOC: VIPIN U #: [id number] AGE/SX: 56/F ROOM: RE02/08/22REG DR: Tobi Joseph : 67 BED: DIS: STATUS: DEP [facility] T[facility]: SPEC #: [id number] RECD: STATUS: SHANTE FIGUEROA #: [id number] JANET: 02/08/22-[address]: Juanita Joseph MD ENTERED: 02/09/22 SP TYPE: SURG OTHR DR: ORDERED: SURG PATH LVL 4 HISTOLOGY: TISSUE ID BLK P CS HAYDEN LEV PROCEDURE DISPOSITION ____ ___ ___ ___ ___ ENDOMETRIUM, NO A 1 PROCEDURES: SURG PATH LVL 4 (02/09/22) TISSUES: A. ENDOMETRIUM, NOS - ENDOMETRIAL CURETTINGS CPT CODES CPT CODE(S): 44010 , , , , , , FINAL DIAGNOSIS Uterus, endo metrium, curettage: HEMORRHAGE FRAGMENTS OF SQUAMOUS ECTOCERVIX FRAGMENTS OF ENDOCERVICAL GL ANDS RARE FRAGMENTS OF ENDOMETRIAL GLANDS NO DEFINITE EVIDENCE OF MALIGNANCY OR HYPERPLASIA, S EE MICROSCOPIC EXAMINATION GROSS DESCRIPTION Endometrial curettings. The specimen consists of les s than 1 cc of bloody mucus, filtered in a tea bag and submitted entirely as A. /tc/pdb Gross ing performed at [facility] Pathology, [address] [place] [address], [address], [place] [address]. edical Director: Francisco Duron M.D. MICROSCOPIC DESCRIPTION Endometrial curettings. Sect ions demonstrate hemorrhagic material with portions of squamous ectocervix and scant fragmen ts of glandular mucosa. Portions of the mucosa are suggestive of endocervical mucosa. Rare fr agments of endometrial type glands are also seen. No evidence of hyperplasia or atypia is see n, however the portion of endometrial glands is limited. Clinical correlation suggested. CONTINUED ON NEXT PAGE RUN DATE: 02/13/22 ENEDINA Nagel [facility] - LAB PAGE 2 RUN TIME: 1204 Specimen Inquiry RUN USER: INTERFACE SPEC #: [id number] PATIENT: ERIC SANCHEZ MAY #[id number] (Continued) ------ Signed SIGNATURE ON FILE Michael Crowder 02/13/22 120 4 END OF REPORT BASIC METABOLIC [id number] 15:32:00 Test Item Value Reference Range Interpretation Comments SODIUM (test code = NA) 142 mmol/L 134-147 N POTASSIUM (test code = K) 4.0 mmol/L 3.4-5.0 N CHLORIDE (test code = CL) 108 mmol/L 100-108 N CARBON DIOXIDE (test code = CO2) 30 mmol/L 21-32 N ANION GAP (test code = GAP) 4.0 GAP calc 4.0-15.0 N GLUCOSE (test code = GLU) 87 MG/DL 70-110 N BLOOD UREA NITROGEN (test code = 19 MG/DL 7-18 H BUN) GLOMERULAR FILTRATION RATE (test 55 estGFR >60 L code = GFR) CREATININE (test code = CREAT) 1.1 MG/DL 0.6-1.0 H CALCIUM (test code = CA) 9.1 MG/DL 8.5-10.1 N COVID 19 INHOUSE [id number] 15:23:00 Test Item Value Reference Range Interpretation Comments COVID 19 INHOUSE AG NEGATIVE Negative Per manu facturer, (test code = negative result s should [id number]) be treated aspr esumptive and, if inconsi stent with clinical signs andsymptoms or necessary for patient man agement, should betested with an alternative mol ecular assay. Negative resultsdo not preclude SA RS-CoV-2 infection and s hould not be usedas the s ole basis for patient man agement decisions. Nega tive results should be considered in t he context of apatient's r ecent exposures, hist ory, presence of cli nicalsigns and symptoms co nsistent with COVID-19. HCG SERUM [id number] 15:00:00 Test Item Value Reference Range Interpretation Comments HCG SERUM QUAL (test SERUM NEGATIVE SCREEN NEGATIVE code = HCGQL) CBC W/AUTO [id number] 14:45:00 Test Item Value Reference Range Interpretation Comments WHITE BLOOD CELL (test code = 8.8 K/mm3 3.5-11.0 N WBC) RED BLOOD CELL (test code = 5.09 M/mm3 4.70-6.10 N RBC) HEMOGLOBIN (test code = HGB) 14.6 G/DL 10.4-14.9 N HEMATOCRIT (test code = HCT) 45.0 % 31.5-44.1 H MEAN CELL VOLUME (test code = 88.4 Fl 84.5-98.6 N MCV) MEAN CELL HGB (test code = MCH) 28.7 pg 27.0-34.2 N MEAN CELL HGB CONCETRATION 32.4 G/DL 31.5-34.0 N (test code = MCHC) RED CELL DISTRIBUTION WIDTH 14.1 SD 11.5-14.5 N (test code = RDW) PLATELET COUNT (test code = 185 K/mm3 150-450 N PLT) MEAN PLATELET VOLUME (test code 10.40 fL 7.0-10.5 N = MPV) NEUTROPHIL % (test code = NT%) 55.1 % 40-76 N IMMATURE GRANULOCYTE % (test 0.2 % 0.0-5.0 N code = IG%) LYMPHOCYTE % (test code = LY%) 29.8 % 20.5-51.1 N MONOCYTE % (test code = MO%) 9.8 % 1.7-9.3 H EOSINOPHIL % (test code = EO%) 4.4 % 0.0-6.0 N BASOPHIL % (test code = BA%) 0.7 % 0.0-2.0 N NUCLEATED RBC % (test code = 0.0 /100WBC% 0.0-1.0 N NRBC%) NEUTROPHIL # (test code = NT#) 4.9 K/mm3 1.8-7.6 N IMMATURE GRANULOCYTE # (test 0.02 x10 3/uL 0.00-0.03 N code = IG#) LYMPHOCYTE # (test code = LY#) 2.6 K/mm3 0.6-3.2 N MONOCYTE # (test code = MO#) 0.9 K/mm3 0.3-1.1 N EOSINOPHIL # (test code = EO#) 0.4 K/mm3 0.0-0.4 N BASOPHIL # (test code = BA#) 0.1 K/mm3 0.0-0.1 N NUCLEATED RBC # (test code = 0.0 K/mm3 0.0-0.1 N NRBC#) MANUAL DIFF REQUIRED (test code NO DIFF/SCN CRITERIA = MDIFF) HEPATIC FUNCTION [id number] 14:43:21 Test Item Value Reference Range Interpretation Comments PROTEIN TOTAL (test See_Comment [Automa jenifer message] code = 2885-2) The system [facility] generated this result transmitted ref erence range: 6.1 - 8. 1 G/DL. The reference r judy was not used to interpret this result as normal/abnor mal. ALBUMIN (test code = See_Comment [Autom ated message] 02379-5) The system [employer] generated this result transmitted ref erence range: 3.4 - 4. 8 G/DL. The reference r judy was not used to interpret this result as normal/abnor mal. BILIRUBIN TOTAL (test See_Comment [Auto mated message] code = 1974-) The system [employer] generated this result transmitted ref erence range: <=1.2 MG /DL. The reference r judy was not used to interpret this result as normal/abnor mal. BILIRUBIN DIRECT See_Comment [Automated message] (test code = 1968-06) The s tem which generated this result transmitted ref erence range: 0.0 - 0. 4 MG/DL. The refe rence range was not u sed to interpret this result as normal/abnor mal. ALKALINE PHOSPHATASE 65 U/L 30-132 (test code = 6768-6) AST (SGOT) (test code 36 U/L 7-56 = 1920-8) ALT (SGPT) (test code 32 U/L 3-47 TESTI NG PERFORMED AT = 1744-2) [facility], [place], [address] [place] [address] CLIA NO. [id number] Unle ss Otherwise Indic ated, All Testing Per formed At: [facility], [address] [place] [address] Laborator y Director: Sofaí Champion M.D. CLIA Number [id number] Cap Accreditation N o. [id number] GREGORY (test code = GREGORY) PT [facility]ING [facility] [id number] 14:43:21 Test Item Value Reference Range Interpretation Comments PROTEIN TOTAL (test See_Comment [Automa jenifer message] code = 2885-2) The system [employer] generated this result transmitted ref erence range: 6.1 - 8. 1 G/DL. The reference r judy was not used to interpret this result as normal/abnor mal. ALBUMIN (test code = See_Comment [Autom ated message] 56781-6) The system whic h generated this result transmitted ref erence range: 3.4 - 4. 8 G/DL. The reference r judy was not used to interpret this result as normal/abnor mal. BILIRUBIN TOTAL (test See_Comment [Auto mated message] code = 1974-) The system wh ich generated this result transmitted ref erence range: <=1.2 MG /DL. The reference r judy was not used to interpret this result as normal/abnor mal. BILIRUBIN DIRECT See_Comment [Automated message] (test code = 1968-06) The sys tem which generated this result transmitted ref erence range: 0.0 - 0. 4 MG/DL. The refe rence range was not u sed to interpret this result as normal/abnor mal. ALKALINE PHOSPHATASE 65 U/L 30-132 (test code = 6768-6) AST (SGOT) (test code 36 U/L 7-56 = 1920-8) ALT (SGPT) (test code 32 U/L 3-47 TESTI NG PERFORMED AT = 1744-2) [facility] [place], [address] [place] [address] CLIA NO. [id number] Unle ss Otherwise Indic ated, All Testing Per formed At: [facility], [address] [place] [address] Laborator y Director: Sofía Champion M.D. CLIA Number [id number] Cap Accreditation [place] o. [id number] GREGORY (test code = GREGORY) PT [facility] BONE DENSITY [id number] 11:08:00Reason for Exam:->Malignant neoplasm of left breast in female, estrogen receptor positive, unspecified site of breast (HCC) [facility] : 1965 Sex: FFINAL REPORT EXAM: BONE MINERAL DENSITYHISTORY: Bone mineralization evaluationCOMPARISON: NoneDISCUSSION: Evaluation of the left hip and lumbar spine was performed utilizing DEXA Hologic bone densitometer. The study is technically adequate. Left hip femoral neck bone mineral density:0.96 g/cm2, T- score is 1.0, Z-score is 2.1. Left hip total bone mineral density: 1.08 g/cm2, T-scoreis 1.2, Z-score is 1.8. Lumbar spine total bone mineral density: 1.12 gm/cm2, T-score is 0.7, Z-score is 1.8. Impression:Bone mineralization by WHO Classification is normal, the fracture risk is not increased. Signed: Jose Raul Clark MDReport Verified Date/Time: 08/22/2021 11:08:39 Reading Location: [facility] Reading Room [address] [place] [address] TISSUE [id number] 09:16:00Surgical Pathology Report Case: [id number] Authorizing Provider: Ann Segal, Collected: 03/08/2021 08:42 AM Ordering Location: [facility] PERI[facility] Received: 03/08/2021 11:20 AM SERVICES Pathologist: Carolyn Marinelli MD Specimens: A) - Breast, Right, Right Breast tissue, Newanterior margin, Stitch bhardwaj the new Margin B) - Lymph Node, [place] Lymp Node 1 4659 C) - Lymph N ode, [place] Lymp Node 2 5970 A. BREAST, RIGHT NEW ANTERIOR MARGIN, EXCISION - SKIN AND FIBROTIC TISSUE - WITH SCARRING, FAT NECROSIS - AND REACTIVE CHANGES - NEGATIVE FOR CARCINOMAB. LYMPH NODE, SENTINEL #1, COUNT 4659, BIOPSY - ONE LYMPH NODE, NEGATIVE FOR CARCINOMA (0/1)C. LYMPH NODE, SENTINEL #2, COUNT 5970, BIOPSY - ONE LYMPH NODE, NEGATIVE FOR CARCINOMA (0/1) Signing Pathologist Direct Phone Line: [phone] signed by Carolyn Marinelli MD on 03/10/2021 at 9:16 AMTUMOR STAGING (PATHOLOGY) UPDATED BASED ON CURRENT AND PRIOR SPECIMEN [id number] site of tumor : RIGHTbreastHistologic type : Infiltrating ductal carcinoma, no special typeHistologic grade : G2, moderately differentiatedTumor size : 7mmPrimary tumor (T) : pT1b Lymph node (N) : zA0Janfovo : NegativeA. 76710 X 1B. 91163 X 1C. 65993 X 1Malignant neoplasm of right female breast, unspecified estrogen receptor status, unspecified site of breast A. Breast, rightB. Lymph nodeC. Lymph nodesA. Received fresh labeled with the patient's name, accession number and "right breast new anterior margin" is a 2.1 x 0.2 cm prescott-pink skin ellipse that is excised to a depth of 0.7 cm, and has a suture at the skin, which is designated as the anterior margin by the surgeon. Margin is inked yellow by the prosector. The specimen is serially sectioned and sequentially submitted in its entirety in A1.B. Received fresh labeled with the patient's name, accession number and "sentinel lymph node #1 4659" is a 3.2 x 2.0 x 0.8 cm prescott lymph node with attached soft tissue, which is serially sectioned and entirely submitted in B1-B5.C. Received fresh labeled the patient's name, accession number and "sentinel lymph node #2 5970" is a 1.0 x 0.9 x 0.3 cm prescott lymph node with attached soft tissue. The specimen is entirely submitted as follows:Section codeC1-1 lymph node, upbfoqqmA0-P1-gvzwczxsx of soft tissueCUCO Gutierrez HT (ASCP)A-C. Performed.[facility], Department of Pathology, [address] [place] [address], [facility], Department of Path[facility], [address] [place] [address], [facility], Department of Pathology, [address] [place] [address], JTWJOY [id number] 09:01:00Surgical Pathology Report Case: [id number] Authorizing Provider: Ann Segal, Collected: 02/07/2021 09:18 AM Ordering Location: [facility] Received: 02/07/2021 11:38 AM SERVICES Pathologist: Carolyn Marinelli MD Specimens: A) - Breast, Right, RIGHT BREAST LUMPECTOMY, SHORT STITCH SUPERIOR, LONG STITCH LATERAL B) - Breast, Right, NEW INFERIOR MEDIAL MARGIN, STITCH SOFÍA NEW MARGIN A. BREAST, RIGHT [employer] REFERENCE LIBRARY ASSISTANT GUIDED LUMPECTOMY - INFILTRATING DUCTAL CARCINOMA, NOSPECIAL TYPE - WITH FOCAL LOBULAR GROWTH PATTERN - GREATEST MICROSCOPIC MEASUREMENT : 7MM - HISTOLOGIC GRADE : 2/3 (3 + 2 + 1) BY ESBR CRITERIA - MITOTIC COUNT : 1 MITOSIS PER 10 HPF'S - NO LYMPHOVASCULAR INVASION SEEN - NO TUMOR INFILTRATING LYMPHOCYTES - SURGICAL MARGINS : POSITIVE - ANTERIOR : POSIT MIKE, FOCALLY - CAUTERIZED TUMOR WITH INK - INFERIOR : 0.2MM - SEE PART B FOR FINAL MEDIAL - MEDIAL : 3MM - SEE PART B FOR FINAL MEDIAL - DEEP : 5MM - ALL OTHERS > 10MM - DUCTAL CARCINOMA IN SITU, NON-EXTENSIVE - DCIS COMPRISING APPROXIMATELY 1% OF TUMOR - PRESENT FEW SCATTERED DUCT SPACES - GREATEST MICROSCOPIC MEASUREMENT : 0.5MM - NUCLEAR GRADE : 1-2/3 BY [facility] CRITERIA - GROWTH PATTERN : SOLID, FOCALLY CRIBRIFORM - NO CENTRAL COMEDO NECROSIS IS IDENTIFIED - SURGICAL MARGINS : NEGATIVE - MEDIAL : 0.75MM - SEE PART B FOR FINAL MEDIAL - INFERIOR : 1MM - SEE PART B FOR FINAL INFERIOR - ANTERIOR : 2MM - ALL MARGINS > 10MM - BIOPSY SITE CHANGES (CLIP X 1) IDENTIFIED - COLUMNAR CELL CHANGES, F OCAL - APOCRINE METAPLASIA - BENIGN BREAST TISSUE ASSOCIATED WITH CALCIFICATIONSB. BREAST, RIGHT NEWINFERIOR MEDIAL MARGIN, EXCISION - BREAST TISSUE, NEGATIVE FOR CARCINOMA Signing Pathologist Direct Phone Line: [phone] signed by Carolyn Marinelli MD on 02/10/2021 at 9:01 AMTUMOR STAGING (PATHOLOGY) Anatomic site of tumor : RIGHT breastHistologic type : Infiltrating ductal carcinoma, no special typeHistologic grade : G2, moderately differentiatedTumor size : 7mmPrimary tumor (T) : pT1b Lymph node (N) : pNxMargins : Positive (anterior, focally)BIOMARKERS PERFORMED ON SECTION A4 ESTROGEN RECEPTOR: POSITIVEProportion score: 5/5Intensity score: 3/3SUMMARY: 95% POSITIVE, STRONG INTENSITY PROGESTERONE RECEPTOR: POSITIVEProportion score: 5/5Intensity score: 2/3SUMMARY: 95% POSITIVE, MODERATE INTENSITYHER 2 OVER- EXPRESSION: NEGATIVE (SCORE: 1+) Ki67 (Proliferation marker): AVERAGE 7% (cut off-20%)INVASIVE CARCINOMA OF THE BREAST: Resection (INVASIVE CARCINOMA OF THE BREAST: COMPLETE EXCISION - All Specimens)8th Edition - Protocol posted: 01/27/2020SPECIMEN Procedure: Excision (less than total mastectomy) Specimen Laterality: Right TUMOR Histologic Type: Invasive carcinoma of no special type (ductal) Glandular (Acinar) / Tubular Differentiation: Score 3 Nuclear Pleomorphism: Score 2 Mitotic Rate: Score 1 Overall Grade: Grade 2 (scores of 6 or 7) Tumor Size: Greatest dimension of largest invasive focus (Millimeters): 7 mm Tumor Focality: Single focus of invasive carcinoma Ductal Carcinoma In Situ (DCIS): Present : Negative for extensive intraductal component (EIC) Size (Exte nt) of DCIS: Estimated size (extent) of DCIS is at least (Millimeters): 0.5 mm Architectural Patterns: Cribriform Architectural Patterns: Solid Nuclear Grade: Grade II (intermediate) Necrosis: Not identified Lobular Carcinoma In Situ (LCIS): Not identified Tumor Extent: Lymphovascular Invasion: Not identified Microcalcifications: Present in non-neoplastic tissue Treatment Effect in the Breast: No known presurgical therapy MARGINS Invasive Carcinoma Margins: Positive for invasive carcinoma Positive Margin(s): Anterior : Unifocal DCIS Margins: Uninvolved by DCIS Distance from Closest Margin (Millimeters): 2 mm Closest Margin(s): Anterior LYMPH NODES Regional Lymph Nodes: No lymph nodes submitted orfound PATHOLOGIC STAGE CLASSIFICATION (pTNM, AJCC 8th Edition) Primary Tumor (pT): pT1b Regional Lymph Nodes (pN): pNX Breast Biomarker Testing Performed on Previous Biopsy: Estrogen Receptor (ER) Status: Positive (greater than 10% of cells demonstrate nuclear positivity) Percentage of Cells with Nucle ar Positivity: 95 % Breast Biomarker Testing Performed on Previous Biopsy: Progesterone Receptor (PgR) Status: Positive Percentage of Cells with Nuclear Positivity: 95 % Breast Biomarker Testing Performed on Previous Biopsy: HER2 (by immunohistochemistry): Negative (Score 1+) Breast Biomarker TestingPerformed on Previous Biopsy: Ki-67 Percentage of Positive Nuclei: 7 % Testing Performed on Case Number: performed on current case, block A4 A. 28607 x 1; 42492 x 4; 66441 x 1; 29278 x 2B. 17388 x 1Atypical hyperplasia of right breast A. Breast, rightB. Breast, rightA. Received fresh, labeled with thepatient's name, MRN and " breast, right " is a 8.5 g, 2.5 x (superior to inferior), 3.5 x (medial to lateral), 2.2 (anterior to posterior) cm breast lumpectomy with a short stitch designating the superior margin and a long stitch designating the lateral margin. The specimen is serially sectioned from medial to lateral into 7 slices to reveal a 0.5 x (superior-inferior) 0.7 x (medial-lateral) 0.7 (superficial- deep) cm nunn-white, ill-defined, fibrous mass (slices 3-4) that is 2.2 cm from the superiormargin, 0.1 cm from the inferior margin, 1.0 cm from the medial margin, 1.7 cm from the lateral margin, 0.2 cm from the posterior margin, and 0.1 cm from the anterior margin. The remaining uninvolved cut surfaces approximately 20% dense white fibrous tissue to 80% yellow adipose tissue. A metallic nunn wing tip-shaped clip and [employer] ux engineer is identified at slice 2, which is consistent with a previous biopsy site. The specimen is sequentially submitted in its entirety as follows:Ink code:Blue: SuperiorRed: InferiorBlack: PosteriorYellow: AnteriorSection code:A1-medial end, slice 1, perpendicularA2-slice 2 and previous biopsy siteA3-slice 3, lesionA4-slice 4, lesionA5-slice 7O6-ctres 5T3-atdslkv and, slice 7, perpendicularNote: The specimen is placed in formalin at 9:18 AM on 02/07/2021.B. Received in formalin labeled the patient's name, accession number and "right breast new inferior medial margin" is a 2.3 x 1.7 x 0.9 cm prescott-yellow, fibrofatty breast tissue with a suture at 1 end, which is designated as the new inferior medial margin by the surgeon. The margin is inked red. The specimen is serially sectioned and sequentially submitted in its entirety in B1-B2.CUCO Gutierrez HT ([facility])Derrick- Elizabeth. Performed.The interpretation of this case included the use of immunohistochemistry or special stains.BIOMARKERS PERFORMED ON A4ER - POSITIVEPR - POSITIVEHER2 - [id number] - LOWIMMUNO STAINS PERFORMEDCHROMOGRANIN (A4) - NEGATIVESYNAPTOPHYSIN (A4) - [id number] (A1, A4) - HIGHLIGHTS DCIS, NEGATIVE IN INVASIVECAP REGULATION: FIXATION TIME FOR BIOMARKERS ASSESSMENTCollection date and time: 02/07/2021; 0918 HRSPlaced in fixative date and time: 02/07/2021; 1138 HRSRemoved from formalin date and time: 02/09/2021; 1330 HRSMethodology:Fixation type and length: tissue was fixed in 10% neutral buffered formalin for a minimal of at least 6 hours and not longer than 72 hours.Antibody and Assay Methodology: Antibodies for ER, PgR, Her2 and Ki67 were assessed using clones SP1, 1E2, 4B5 (FDA Approved [employer]) and 30-9 respectively utilizing the ultraView [place] DAB Detection Kit from [employer] [place], [place].Control Slides Examined: In- house known ER, MS, HER2 and Ki67 positive controls were evaluated along with test tissue. These control slides run alongside of the patients sample show appropriate staining.Interpretive Criteria: The staining results are according to the ASCO/CAP guidelines for HER2 (seeAnjum Everett Allison KH, et al. HER 2 Testing in Breast Cancer: ASCO/CAP Focused Update. Arch Pathol Lab Med. 2018;142(11):5065-7939. doi:10.5858/arpa.9710-8916-FF) and ER/MS (see Anjum Hardin, Lachelle Santiago, et al. ER and MS Testing in Breast Cancer: ASCO/CAP Guideline Update. J ClinOncol. 2020;38(12):5882-0739. doi:10.1200/JCO.19.38971).By ASCO/CAP guidelines, ER and MS "positive"requires greater or equal to 1% tumor cells showing nuclear staining. Tumor showing 1% - 10% tumor cells staining for ER are designated " ER Low Positive".HER 2 brayden "positive" (3+) requires circumferential membrane staining that is complete and intense within more than 10% of the invasive tumor cells.HER 2 brayden "equivocal" (2+) requires complete membrane staining that is weak / moderately intense in & gt;10% of invasive tumor cells. HER 2 brayden "negative" (1+) requires incomplete, faint membrane staining in >10% of invasive tumor cells and HER 2 brayden "negative" (0) requires no staining or faint incomplete membrane staining in <= 10% of invasive tumor cells.The ER/MS Proportion Score indicates the proportion of positive staining tumor cells (0 = none; 1 < 1/100; 2 = 1/100- 1/10; 3 = >1/10-1/3; 4 = >1/3-2/3; 5> 2/3). The intensity score indicates the average intensity of positive staining tumor cells (0 = none; 1 = weak; 2 = intermediate; 3 = strong). For the purpose of defining "positive", the proportion and intensity scores were added to obtain a total score (range 0-8). ER and PgR "positive" (total score >2) were defined in studies correlating IHC total scores with clinical outcome in patients receiving hormonal therapy (see: Modern Pathol 11:155, 1998; J Clin Oncol 17:1474,1998; Int J Cancer 89:111, 2000; Breast Cancer Res Treat 76:S36[abst#30], 2002).Immunohistochemistrywas performed on paraffin sections of breast tissue for the factors listed. The immunostaining signals were expressed as scores representing the estimated proportion and intensity of positive tumor cells. Appropriate positive and negative controls were included in the evaluation.COMMENTER low positive(1%-10% positive) - The cancer in this sample has a low level (1%10%) of ER expression by IHC. Thereare limited data on the overall benefit of endocrine therapies for patients with low level (1%10%) ER expression, but they currently suggest possible benefit, so patients are considered eligible for endocrine treatment. There are data that suggest invasive cancers with these results are heterogeneous in both behavior and biology and often have gene expression profiles more similar to ER-negative cancers.ER (0%-10%) and no internal control - No internal controls are present, but external controls areappropriately positive. If needed, testing another specimen that contains internal controls may be warranted for confirmation of ER status.Immunohistochemistry technical testing was performed at [facility], Pathology Laboratory where it was developed and its performance characteristics were determined. It has not been cleared or approved by the U.S. Food and Drug Administration.The FDA has determined that such clearance or approval is not necessary. The test is used for clinical purposes. It should not be regarded as investigational or for research. This laboratory is certified under the Clinical Laboratory Improvement Amendments of 1988 (CLIA-88) as qualified to perform high complexity clinical laboratory testing. [facility], Department of Pathology, [address] [place] [address], [facility], [facility] of [facility], [address] [place] [address], [facility], Department of Path[facility], [address] [place] [address], TVJQ-COV2/RT-PCR ([facility])2021-02-06 17:01:00 Test Item Value Reference Range Interpretation Comments SARS-COV2/RT-PCR (test Negative Not Detected, Negative, code = 0071719) See external report for linked test SARS-COV-2 PERFORMING LAB [facility] (test code = 6885441) Negative result for this test determines that SARS-CoV-2 RNA was not present in the specimen above the Limit of Detection (LOD). However, Negative results do not preclude SARS-CoV-2 infection and should not be used as the sole basis for treatment or patient management decisions. Negative results must be combined with clinical observations, patient history, and epidemiological information. A false negative result may occur if a specimen is improperly collected, transported or handled. A false negative result should be considered if patient's recent exposures or clinical presentation indicate that COVID-19 (SARS-CoV-2) is likely and diagnostic tests for other causes of illness are negative. Re-testing should be considered in cases of suspected false negatives.The limit of detection for this assay is 800 copies/mL.This SARS CoV-2 test is a real-time RT-PCR test intended for the qualitative detection of nucleic acid from SARS-CoV-2 in a nasopharyngeal swab specimen collected from individuals suspected of COVID-19 by their healthcare provider.This test has not been Food and Drug Administration (FDA) cleared or approved. This is a modified version of an approved Emergency Use Authorization (EUA) and is in the process of review by the FDA. Once authorized by the FDA, the issued EUA will be effective until the declaration that circumstances exist justifying the authorization of the emergency use ofin vitro diagnostic tests for detection and/or diagnosis of COVID-19 is terminated under Section 564(b)(2) of the Act or the EUA is revoked under Section 564(g) of the Act.Fact Sheet for Healthcare Prov iders:https://www.[employer]/sites/default/files/product/documents/Fact_Sheet_HC _Hjcbpkhoz_Ltve_KBGD-XeK-0.pdfFact Sheet for Healthcare Patients:https://www.[employer]/sites/default/files/product/docume nts/Appt_Djuvi_Eedwlzmb_Csce_BXVZ-YbO-1.pdfPerforming Laboratory:[place] [address], [place] [address]PYTUPNLRJ SCREEN, URINE 2021-02-06 12:34:00 Test Item Value Reference Range Interpretation Comments TEST URINE (BEAKER) (test Negative code = 583) BUN AND CREATININE [id number] 12:02:00 Test Item Value Reference Range Interpretation Comments BLOOD UREA NITROGEN 19 mg/dL 7-21 (BEAKER) (test code = 354) CREATININE (BEAKER) 1.07 mg/dL 0.57-1.25 Specimen slightly (test code = 358) hemolyzed BUN/CREAT RATIO 18 For a normal (BEAKER) (test code individu al on a = 3767570029) normal diet, t he reference inter acacia for the mass ra zohreh ranges between 12:1 and 20:1 (BUN i n mg/dL/creatinin e in mg/dL) EGFR (BEAKER) (test 53 mL/min/1.73 ESTIMA JENIFER GFR IS code = 1092) sq m NOT ACCURATE CREATININE CLEARANCE IN PREDICTING GLOMERULAR FILTRATION RATE . ESTIMATED GFR I S NOT APPLICABLE FOR DIALYSIS PATIEN TS. BASIC METABOLIC [id number] 12:02:00 Test Item Value Reference Range Interpretation Comments SODIUM (BEAKER) 136 meq/L 136-145 (test code = 381) POTASSIUM (BEAKER) 4.3 meq/L 3.5-5.1 Specimen slightly (test code = 379) hemolyzed CHLORIDE (BEAKER) 108 meq/L 98-107 H (test code = 382) CO2 (BEAKER) (test 19 meq/L 22-29 L code = 355) BLOOD UREA NITROGEN 19 mg/dL 7-21 (BEAKER) (test code = 354) CREATININE (BEAKER) 1.07 mg/dL 0.57-1.25 Specimen slightly (test code = 358) hemolyzed GLUCOSE RANDOM 86 mg/dL 70-105 (BEAKER) (test code = 652) CALCIUM (BEAKER) 8.6 mg/dL 8.4-10.2 (test code = 697) EGFR (BEAKER) (test 53 mL/min/1.73 ESTIMA JENIFER GFR IS code = 1092) sq m NOT ACCURATE CREATININE CLEARANCE IN PREDICTING GLOMERULAR FILTRATION RATE . ESTIMATED GFR I S NOT APPLICABLE FOR DIALYSIS PATIEN TS. 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 A time-out was performed. An infrared activated electromagnetic reflector device placement using ultrasound guidance was performed for the mass located in the right breast at 1 o'clock posterior depth. This was described on the previous biopsy report. The skin was prepped in the usual manner. Local anesthetic was administered to the access site. The localization was approached from the medial aspect. A location device was inserted into the targeted area under ultrasound guidance. Post placement digital mammographic imaging demonstrates location device rests in the targeted area. IMPRESSION: INFRARED ACTIVATED ELECTROMAGNETIC REFLECTOR DEVICE PLACEMENTInfrared activated electromagnetic reflector device placement for the mass in the right breast at 1 o'clock posteriordepth was successful with no apparent post procedure complications. Celestine Locke M.D. pth/:109:05:42 Life Skills Specialist: Yanni Olivier RDMS, [facility] [address] [address],[id number] 10:40:00 Test Item Value Reference Range Interpretation Comments BREAST,BIOPSY (test code = BREABX) --------RUN DATE: 12/26/20 [facility] PAGE 1 RUN TIME: 843 Specimen Inquiry RUN USER: INTERFACE --------PATIENT: ERIC SANCHEZ LOC: KARRIE #: [id number] AGE/SX: 55/F ROOM: RE12/20/20REG DR: Sindhu Sue MD : 67 BED: DIS: STATUS: PRE REF TLOC: -------- SPEC #: [id number] RECD: 12/20/20 STATUS: SHANTE RE #: [id number] JANET: 12/20/20- [facility] DR: Sindhu Sue MD ENTERED: 12/20/20 SP TYPE: BREABX OTHR DR: Luana Luo MD ORDERED: LEVEL IV CODES: [id number] - BREAST, NOS COPIES TO: Luana Luo MD [address] [place] [address] [email or web address] Sindhu Sue MD [address] [facility] [address] [place] [address] PROCEDURES: LEVEL IV (Incomplete) TISSUES: BREAST, NOS - RIGHT BREAST BIOPSY CLINICAL HISTORY 55 year old, US-guided core biopsy, 3 cores obtained (wpd) NOTE: RIGHT breast 1:00 (9 mm): Biopsy: 12/20/20 @ 0935 In formalin: 12/20/20 @ 0939 Out of formalin: 12/20/20 @ 1824 FINAL DIAGNOSIS RIGHT breast 1:00 (9 mm), US-guided core biopsy: - atypical ductal hyperplasia (ADH) - mild periductal chronic inflammation - fibroadenomatoid change - excisional biopsy recommended (see comment below) COMMENT: A small intraductal proliferation is consistent with atypical ductal hyperplasia both morphologically and on immunostain for CK5/6 (negative staining. In an artifactually distorted area of the biopsy, there are epithelial cells within the stroma whose diagnostic significance is inconclusive. Immunostains for myoepithelial markers in this area are inconclusive possibly secondary to the CONTINUED ON NEXT PAGE --------RUN DATE: 12/26/20 [facility] PAGE 2 RUN TIME: 843 Specimen Inquiry RUN USER: INTERFACE --------SPEC #: [id number] PATIENT: ERIC SANCHEZ GIOVANY #[id number] (Continued) FINAL DIAGNOSIS (Continued) artifactual distortion. Because of the atypical ductal hyperplasia and the suspicious intrastromal area, excisional biopsy is recommended. CPT: 64253, 83110-49, 36276-65 x2 cds/wpd GROSS DESCRIPTION ANATOMIC SOURCE OF TISSUE (per Requisition): RIGHT breast 1:00 (9 mm) The specimen is received in a formalin-filled container, labeled with the patient's name and designated "RIGHT breast 1:00 (9 mm)". The specimen consists of three prescott-yellow to brown cores of tissues ranging from 0.4 to 0.7 cm. The tissues are submitted in toto in A1. nathan 12/20/20 MICROSCOPIC DESCRIPTION Tissue cores designated "RIGHT breast 1:00 (9 mm)" consist of breast parenchyma atypical ductal hyperplasia (ADH). Mild periductal chronic inflammation is present. Areas of fibroadenomatoid change are also noted. Immunostains for CK5/6, SMM-HC and p63 are performed on block A1 for further evaluation. cds/wpd The following technical components [facility], [address] [place] [address], [address], [place] [address]. The interpretation is provided by [facility], [address] [place] [address]. Controls [facility] from [facility]. INTERPRETATION: CK5/6 (A1) - negative staining in the area of concern (atypical ductal hyperplasia) SMM-HC (A1) - inconclusive in area of concern possibly secondary to artifactual distortion of the biopsy P63 (A1) - inconclusive in area of concern possibly secondary to artifactual distortion of the biopsy cds/wpd Signed ____ Yousuf Colin 12/21/20 1040 -------- END OF REPORT
--- NOTE | 2022-07-06 17:49 | RAD REPORT ---
EXAM DESCRIPTION: Yosvany Single View07/06/2022 5:41 pm CLINICAL HISTORY: Abnormal EKG/breast cancer COMPARISON: none FINDINGS: The lungs appear clear of acute infiltrate. The heart is normal size IMPRESSION: No acute abnormalities displayed
[2022-07-06 19:06] LABS: Urine Blood Negative (Negative); Urine Glucose Negative (Negative); Urine Protein Negative (Negative); Urine Specific Gravity 1.015 (1.005-1.030); Urine pH 7.5 (5.0-7.0)
[2022-07-06 19:35] LABS: Absolute Lymphocytes (CBC) 2.5 K/uL (0.7-4.9); Hematocrit 44.6 % (36.0-45.0); Lymphocytes % 35.3 % (15.3-44.8); MCV 87.4 fL (80-100); MPV 8.8 fL (7.6-11.3)
[2022-07-06 19:41] LABS: Protime INR 0.99
[2022-07-06 19:49] LABS: Bilirubin Direct 0.1 mg/dL (0-0.2); Bilirubin Total 0.4 mg/dL (0.2-1.0); Magnesium 2.5 mg/dL (1.8-2.4); Potassium 3.8 mmol/L (3.5-5.1); Protein, Total 7.9 g/dL (6.4-8.2); Troponin High Sensitivity 4.6 pg/mL (<58.9)
--- NOTE | 2022-07-06 20:50 | ER ---
Nurse's Notes [facility] Name: Ruby Pérez Age: 56 yrs Sex: Female : 1965 Arrival Date: 07/06/2022 Time: 16:56 Bed 24 Private MD: Diagnosis: Dehydration Presentation: 07/06 17:08 Chief complaint: Patient states: she was sent by her PCP for further evaluation after ap3 an abnormal EKG. Patient denies chest pain, shortness of breath nausea or vomiting. Coronavirus screen: At this time, the client does not indicate any symptoms associated with coronavirus-19. Ebola Screen: No symptoms or risks identified at this time. Initial Sepsis Screen: Does the patient meet any 2 criteria? No. Patient's initial sepsis screen is negative. Does the patient have a suspected source of infection? No. Patient's initial sepsis screen is negative. Risk Assessment: Do you want to hurt yourself or someone else? Patient reports no desire to harm self or others. Onset of symptoms was July 06, 2022. 17:08 Method Of Arrival: Ambulatory ap3 17:08 Acuity: HARVEY 3 ap3 Triage Assessment: 17:23 General: Appears in no apparent distress. Behavior is calm, cooperative, appropriate ap3 for age. Pain: Denies pain. Neuro: Level of Consciousness is awake, alert, obeys commands, Oriented to person, place, time, situation, Appropriate for age Gait is steady, Speech is normal. Cardiovascular: Patient's skin is warm and dry. Respiratory: Airway is patent Respiratory effort is even, unlabored. 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 - Social history:: Smoking status: Patient/guardian denies using tobacco, the patient reports quitting approximately 15 years ago, Patient uses nicotine gum. Screenin:24 Abuse screen: Denies threats or abuse. Nutritional screening: No deficits noted. ap3 Tuberculosis screening: No symptoms or risk factors identified. Assessment: 18:30 General: Appears in no apparent distress. Behavior is calm, cooperative. Pain: Denies hb pain. Neuro: Level of Consciousness is awake, alert, obeys commands, Oriented to person, place, time, situation. Cardiovascular: Patient's skin is warm and dry. Respiratory: Respiratory effort is even, unlabored, Respiratory pattern is regular, symmetrical. GI: No signs and/or symptoms were reported involving the gastrointestinal system. : No signs and/or symptoms were reported regarding the genitourinary system. EENT: No signs and/or symptoms were reported regarding the EENT system. Derm: Skin is pink, warm \T\ dry. Musculoskeletal: No signs and/or symptoms reported regarding the musculoskeletal system. 19:30 Reassessment: Patient appears in no apparent distress at this time. Patient and/or hb family updated on plan of care and expected duration. Pain level reassessed. Patient is alert, oriented x 3, equal unlabored respirations, skin warm/dry/pink. 20:38 Reassessment: Patient appears in no apparent distress at this time. Patient and/or hb family updated on plan of care and expected duration. Pain level reassessed. Patient is alert, oriented x 3, equal unlabored respirations, skin warm/dry/pink. Vital Signs: 17:08 BP 120 / 90; Pulse 103; Resp 18; Temp 98.5; Pulse Ox 100% ; Weight 61.23 kg; Height 5 ap3 ft. 2 in. (157.48 cm); 20:21 BP 120 / 84; Pulse 75; Resp 15; Pulse Ox 100% ; hb 17:08 Body Mass Index 24.69 (61.23 kg, 157.48 cm) ap3 ED Course: 16:56 Patient arrived in ED. am2 17:19 Triage completed. ap3 17:20 Enmanuel Serrano NP is PHCP. pm1 17:20 Tex Almanza MD is Attending Physician. pm1 17:24 Arm band placed on right wrist. ap3 17:43 XRAY Chest (1 view) In Process Unspecified. EDMS 19:08 Hanna Austin, RN is Primary Nurse. hb 20:59 No provider procedures requiring assistance completed. Patient did not have IV access hb during this emergency room visit. Administered Medications: No medications were administered Outcome: 20:49 Discharge ordered by . pm1 20:59 Discharged to home ambulatory, with significant other. 20:59 Condition: stable 20:59 Discharge instructions given to patient, Instructed on discharge instructions, follow up and referral plans. Demonstrated understanding of instructions, follow-up care. 20:59 Patient left the ED. Signatures: Dispatcher [employer] EDMS Enmanuel Serrano NP OR FIRST ASSIST REGISTERED NURSE pm1 Hanna Austin RN RN Nimisha Solitario am2 Nimisha Nicholson RN RN ap3
--- NOTE | 2022-07-06 20:50 | EDPHYS ---
Physician Documentation [facility] Name: Ruby Pérez Age: 56 yrs Sex: Female : 1965 Arrival Date: 07/06/2022 Time: 16:56 Bed 24 Private MD: ED Physician Tex Almanza HPI: 07/06 18:03 This 56 yrs old Female presents to ER via Ambulatory with complaints of abnormal ekg. pm1 18:03 Patient with abnormal EKG in PCP office and sent to the ER for evaluation. pm1 18:03 Onset: The symptoms/episode began/occurred today. Severity of symptoms: Pain is pm1 currently a 0 / 10. The patient has not experienced similar symptoms in the past. The patient has been recently seen by a physician: the patient's primary care provider, earlier today. 56-year-old female presents to the ER with complaints of abnormal EKG. Patient went to her PCP for evaluation and treatment of her blood pressure. Patient reports intentionally losing weight over the past couple months and has noticed her blood pressure has been on the lower side. She has been taking her blood pressure medication sporadically based on her blood pressure readings and she presented to ED PCP for management of her blood pressure medication regimen. Patient had a EKG that was read as abnormal and was sent to the ER for evaluation. Patient without any chest pain shortness of breath. However she does note that she did have some dizziness when her blood pressure readings were low at home. 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 - Social history:: Smoking status: Patient/guardian denies using tobacco, the patient reports quitting approximately 15 years ago, Patient uses nicotine gum. ROS: 18:03 Constitutional: Negative for fever, chills, and weight loss, Cardiovascular: Negative pm1 for chest pain, palpitations, and edema, Respiratory: Negative for shortness of breath, cough, wheezing, and pleuritic chest pain, Abdomen/GI: Negative for abdominal pain, nausea, vomiting, diarrhea, and constipation, MS/Extremity: Negative for injury and deformity, Skin: Negative for injury, rash, and discoloration. 18:03 Neuro: Positive for dizziness when her blood pressure readings were low at home a few days ago. 18:03 All other systems are negative. pm1 Exam: 18:03 Constitutional: This is a well developed, well nourished patient who is awake, alert, pm1 and in no acute distress. Head/Face: Normocephalic, atraumatic. 18:03 Back: No spinal tenderness. No costovertebral tenderness. Full range of motion. Skin: Warm, dry with normal turgor. Normal color with no rashes, no lesions, and no evidence of cellulitis. MS/ Extremity: Pulses equal, no cyanosis. Neurovascular intact. Full, normal range of motion. 18:03 Cardiovascular: Rate: tachycardic, actual rate is 103 bpm, Rhythm: regular, Pulses: no pulse deficits are appreciated, Heart sounds: normal, normal S1and S2. 18:03 Respiratory: Exam negative for acute changes, respiratory distress, shortness of breath. 18:03 Abdomen/GI: Exam negative for acute changes, Inspection: abdomen appears normal, Palpation: abdomen is soft and non-tender, in all quadrants. 18:03 Neuro: Exam negative for acute changes, Orientation: is normal, Mentation: is normal, Motor: is normal, moves all fours, Gait: is steady, at a normal pace, without difficulty. Vital Signs: 17:08 BP 120 / 90; Pulse 103; Resp 18; Temp 98.5; Pulse Ox 100% ; Weight 61.23 kg; Height 5 ap3 ft. 2 in. (157.48 cm); 20:21 BP 120 / 84; Pulse 75; Resp 15; Pulse Ox 100% ; hb 17:08 Body Mass Index 24.69 (61.23 kg, 157.48 cm) ap3 MDM: 17:21 Patient medically screened. pm1 20:49 Data reviewed: vital signs. Data interpreted: Pulse oximetry: on room air is 100 %. pm1 Interpretation: normal. Counseling: I had a detailed discussion with the patient and/or guardian regarding: the historical points, exam findings, and any diagnostic results supporting the discharge/admit diagnosis, lab results, radiology results, the need for outpatient follow up, to return to the emergency department if symptoms worsen or persist or if there are any questions or concerns that arise at home. 07/06 17:20 Order name: Basic Metabolic Panel; Complete Time: 20:04 pm1 07/06 17:20 Order name: CBC with Diff; Complete Time: 20:04 pm1 07/06 17:20 Order name: LFT's; Complete Time: 20:04 pm1 07/06 17:20 Order name: Magnesium; Complete Time: 20:04 pm1 07/06 17:20 Order name: NT PRO-BNP; Complete Time: 20:04 pm1 07/06 17:20 Order name: PT-INR; Complete Time: 20:04 pm1 07/06 17:20 Order name: Troponin HS; Complete Time: 20:04 pm1 07/06 17:20 Order name: XRAY Chest (1 view); Complete Time: 17:52 pm1 07/06 17:20 Order name: EKG; Complete Time: 17:22 pm1 07/06 17:20 Order name: Cardiac monitoring; Complete Time: 19:05 pm1 07/06 17:20 Order name: EKG - Nurse/Tech; Complete Time: 19:05 pm1 07/06 18:25 Order name: Thyroid Stimulat Hormone; Complete Time: 20:04 pm1 07/06 19:07 Order name: Urine Dipstick-Ancillary; Complete Time: 20:04 EDMS 07/06 17:20 Order name: Labs collected and sent; Complete Time: 20:22 pm1 07/06 17:20 Order name: O2 Per Protocol; Complete Time: 19:05 pm1 07/06 17:20 Order name: O2 Sat Monitoring; Complete Time: 19:05 pm1 EC:30 Rate is 77 beats/min. Rhythm is regular, Normal Sinus Rhythm with No ectopy. QRS [place] pm1 is Normal. OH interval is normal. QRS interval is normal. QT interval is normal. No Q waves. T waves are Normal. No ST changes noted. Clinical impression: Normal ECG. Administered Medications: No medications were administered Disposition Summary: 07/06/22 20:49 Discharge Ordered Location: Home pm1 Problem: new pm1 Symptoms: have improved pm1 Condition: Stable pm1 Diagnosis - Dehydration pm1 Followup: pm1 - With: Emergency Department - When: As needed - Reason: Worsening of condition Followup: pm1 - With: Private Physician - When: 2 - 3 days - Reason: Recheck today's complaints, Continuance of care, Re-evaluation by your physician Discharge Instructions: - Discharge Summary Sheet pm1 - Dehydration, Adult pm1 - Rehydration, Adult pm1 Forms: - Medication Reconciliation Form pm1 - Thank You Letter pm1 - Antibiotic Education pm1 - Prescription Opioid Use pm1 Signatures: Dispatcher [employer] Enmanuel Reyes, DAVE ACCOUNTS RECEIVABLE ANALYST pm1 Nimisha Nicholson, RN RN ap3
[2022-07-06 23:30] VITALS: O2SAT 100
[2022-07-06 23:37] VITALS: BP 120/90; TEMP 98.5
--- NOTE | 2022-07-09 13:51 | EKG ---
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
== END 2022-07-06 20:59 | disposition home or self-care (01) ==
LOC: ER 16:47
DX: E86.0 Dehydration (principal); I10 Essential (primary) hypertension; Z85.3 Personal history of malignant neoplasm of breast; Z88.8 Allergy status to other drugs, medicaments and biological substances
CPT/HCPCS: 36415; 71045; 80048; 80076; 81003; 83735; 83880; 84443; 84484; 85025; 85610; 93005; 99283